=== PATIENT | male | born 1945 | race Caucasian/White ===

== ENCOUNTER 2020-11-13 02:03 | Inpatient (IN) | payer MEDICARE ==
[~2020-11-13] VITALS: Ht 185.4 cm; Wt 69.4 kg
[2020-11-13 03:06] LABS: HEMOGLOBIN 12.3 gm/dl (14.0-17.5); RED BLOOD COUNT 3.61 M/UL (4.20-5.50); WHITE BLOOD COUNT 10.6 K/UL (4.5-11.0)
[2020-11-13 03:31] LABS: BUN/CREATININE RATIO 19 (0-10)
[2020-11-13] MEDS ORDERED: SOTALOL80 MG PO (10:43)
[2020-11-13] MEDS ORDERED: PRADAXA150 MG PO (10:43)
[2020-11-13] MEDS ORDERED: ALDACTONE 25MG25 MG PO (10:43)
[2020-11-13] MEDS ORDERED: MAGNESIUM400 MG PO (10:44)
[2020-11-13] MEDS ORDERED: AMBIEN10 MG PO (10:44)
[2020-11-13] MEDS ORDERED: ACYCLOVIR400 MG PO (11:02)
--- NOTE | 2020-11-13 14:48 | NUR ---
11/13/20 1445 REFUSES TO WEAR OXYGEN ROOM AIR SAT 93% DENIES CHEST PAIN OR DISCOMFORT AT THIS TIME
--- NOTE | 2020-11-14 00:07 | NUR ---
PT REFUSING MEDICATION AND VITALS. PT. IS BECOMING AGITATED AND THROWING WATER PITCHER AT STAFF. SECURITY WAS CALLED. SECURITY AND A ONE ON ONE SITTER IS NOW WITH THE PATIENT.
--- NOTE | 2020-11-14 04:59 | NUR ---
Pt became combative and threw his water at [place]. He demanded that everyone get out of his room and let him leave. A code ashley was called and it took several nurses, senior warehouse clerk, and security gaurd to safely get patient back to bed. Patient is very angry and says we are "not part of this institution" and we are "holding him captive". Patient is experiencing delusions in [facility] he thinks he is in control of the hospital.
[2020-11-14] MEDS ORDERED: FERROUS SULFAT325 M2 PO (12:48)
== END 2020-11-14 13:28 | disposition home or self-care (01) | DRG 189 ==
LOC: ER1 02:03 → MED SURG 4 04:46 → CDU 04:46 → MED SURG 4 09:42
PROVIDERS: Family Medicine; ADMIT Internal Medicine
DX: J96.01 Acute respiratory failure with hypoxia (principal); E44.0 Moderate protein-calorie malnutrition; M62.82 Rhabdomyolysis; C25.9 Malignant neoplasm of pancreas, unspecified; G93.1 Anoxic brain damage, not elsewhere classified; J44.9 Chronic obstructive pulmonary disease, unspecified; Z20.822 Contact with and (suspected) exposure to COVID-19; E87.6 Hypokalemia; F41.9 Anxiety disorder, unspecified; G47.33 Obstructive sleep apnea (adult) (pediatric); F17.210 Nicotine dependence, cigarettes, uncomplicated; D53.9 Nutritional anemia, unspecified; I48.0 Paroxysmal atrial fibrillation; Z99.81 Dependence on supplemental oxygen; Z79.899 Other long term (current) drug therapy; Z83.3 Family history of diabetes mellitus; Z82.49 Family history of ischemic heart disease and other diseases of the circulatory system; Z92.21 Personal history of antineoplastic chemotherapy; W01.0XXA Fall on same level from slipping, tripping and stumbling without subsequent striking against object, initial encounter; Z68.20 Body mass index [BMI] 20.0-20.9, adult
CPT/HCPCS: 36415; 36600; 70450; 71046; 80053; 81001; 82550; 82553; 82607; 82728; 82746; 82803; 83540; 83550; 83605; 83735; 84100; 84484; 85025; 86140; 87040; 87086; 93005; 94640; 94664; 96374; 99285; J1630; J2930; J3411; U0002